=== PATIENT | female | born 1975 | race Caucasian/White ===

== ENCOUNTER → 2021-04-12 | Outpatient (CLI) | payer OTHER ==
[2021-04-13 13:40] LABS: ANA SCREEN with REFLEX Negative (Negative)
[2021-04-15 02:31] LABS: ANTI-CYC CITRULLINATED PEPT AB <20.0 CU (0.0-19.9)
== END ==
LOC: LAB 15:19
PROVIDERS: Internal Medicine
DX: M46.1 Sacroiliitis, not elsewhere classified (principal); M70.61 Trochanteric bursitis, right hip; M25.512 Pain in left shoulder; R21 Rash and other nonspecific skin eruption; M54.31 Sciatica, right side

== ENCOUNTER → 2021-05-02 | Outpatient (CLI) | payer OTHER | LOC: RAD 15:28 | DX: G54.0 Brachial plexus disorders (principal) ==

== ENCOUNTER → 2021-10-26 | Outpatient (CLI) | payer SELFPAY ==
[2021-10-26 12:48] LABS: BASO # 0.03 K/mm3 (0.02-0.10); EOS # 0.06 K/mm3 (0.04-0.40); EOS % 0.7 % (1.0-5.0); HEMATOCRIT 40.1 % (37.0-47.0); LYMPH# 1.89 K/mm3 (1.50-4.00); MEAN CELL VOLUME 94 fl (78-100); MEAN CORPUSCULAR HEMOGLOBIN 30 pg (27-31); MEAN CORPUSCULAR HGB CONC 32 g/dL (33-37); MEAN PLATELET VOLUME 10.6 fl (7.4-10.4); MONO # 0.67 K/mm3 (0.20-0.80); NEU # 5.47 K/mm3 (1.40-6.50); PLATELET COUNT 251 K/mm3 (130-400); RED BLOOD COUNT 4.29 M/mm3 (4.10-5.30); RED CELL DISTRIBUTION WIDTH 12.6 % (11.5-14.5); WHITE BLOOD COUNT 8.1 K/mm3 (4.8-10.8)
[2021-10-26 13:06] LABS: ALBUMIN 4.3 g/dL (3.5-5.0); POTASSIUM 4.3 mmol/L (3.5-5.1); SODIUM 138 mmol/L (136-145)
[2021-10-26 13:08] LABS: TOTAL PROTEIN 7.1 g/dL (6.4-8.3)
[2021-10-26 13:09] LABS: GLUCOSE 100 mg/dL (65-105)
[2021-10-26 13:10] LABS: CARBON DIOXIDE 24 mmol/L (22-29); PARTIAL THROMBOPLASTIN TIME 24.1 SECONDS (21.0-32.0); PROTHROMBIN TIME 10.7 SECONDS (9.0-12.0); TOTAL BILIRUBIN 0.5 mg/dL (0.2-1.2)
[2021-10-26 13:14] LABS: AST-SGOT 15 U/L (5-34)
[2021-10-26 13:15] LABS: ALT/SGPT 12 U/L (0-55)
[2021-10-26 13:52] LABS: ERYTHROCYTE SEDIMENTATION RATE 22 mm/hr (0-20)
== END ==
LOC: LAB 12:30
PROVIDERS: Internal Medicine
DX: M62.40 Contracture of muscle, unspecified site (principal); R23.3 Spontaneous ecchymoses; R63.4 Abnormal weight loss

== ENCOUNTER → 2024-05-12 | Outpatient (CLI) | payer BC ==
[2024-05-12 11:01] LABS: BASO # 0.04 K/mm3 (0.02-0.10); EOS # 0.15 K/mm3 (0.04-0.40); EOS % 2.6 % (1.0-5.0); HEMATOCRIT 39.9 % (37.0-47.0); HEMOGLOBIN 13.1 g/dL (12.5-16.0); LYMPH# 2.31 K/mm3 (1.50-4.00); MEAN CELL VOLUME 93 fl (78-100); MEAN CORPUSCULAR HEMOGLOBIN 31 pg (27-31); MEAN CORPUSCULAR HGB CONC 33 g/dL (33-37); MONO # 0.69 K/mm3 (0.20-0.80); NEU # 2.47 K/mm3 (1.40-6.50); PLATELET COUNT 299 K/mm3 (130-400); RED BLOOD COUNT 4.27 M/mm3 (4.10-5.30); RED CELL DISTRIBUTION WIDTH 11.9 % (11.5-14.5); WHITE BLOOD COUNT 5.7 K/mm3 (4.8-10.8)
[2024-05-12 11:11] LABS: ALBUMIN 4.2 g/dL (3.5-5.0)
[2024-05-12 11:12] LABS: CALCIUM 9.2 mg/dL (8.3-10.5)
[2024-05-12 11:13] LABS: TOTAL PROTEIN 7.2 g/dL (6.4-8.3)
[2024-05-12 11:15] LABS: TOTAL BILIRUBIN 0.2 mg/dL (0.2-1.2)
[2024-05-12 11:20] LABS: MAGNESIUM 1.76 mg/dL (1.60-2.60)
[2024-05-13 00:45] LABS: FOLATE (FOLIC ACID) 6.5 ng/mL (2.0-20.0)
[2024-05-15 12:36] LABS: ANA SCREEN with REFLEX Negative (Negative)
== END ==
LOC: LAB 10:29
PROVIDERS: Internal Medicine
DX: Z00.00 Encounter for general adult medical examination without abnormal findings (principal); M25.50 Pain in unspecified joint; M62.40 Contracture of muscle, unspecified site; M62.81 Muscle weakness (generalized); F41.8 Other specified anxiety disorders; K90.9 Intestinal malabsorption, unspecified; R20.2 Paresthesia of skin; E78.2 Mixed hyperlipidemia